=== PATIENT | female | born 1960 | race Caucasian/White ===

== ENCOUNTER 2019-04-18 00:36 | Observation (INO) | payer MEDICARE, OTHER ==
[2019-04-18] MEDS ORDERED: ASPIRIN 81 MG PO STA (01:24)
[2019-04-18] MEDS ORDERED: NITROGLYCERIN SL TABS 0.4 MG TAB SUBLINGUAL STA (01:24)
--- NOTE | 2019-04-18 01:24 | ED ---
Chest Pain HPI - General Chief Complaint: Chest Pain Stated Complaint: Chest Pain Time Seen by Provider: 04/18/19 01:06 Source: patient Mode of arrival: wheelchair Limitations: no limitations - History of Present Illness MD Complaint: chest pain -: hour(s) Onset: during rest Pain Location: substernal Pain Radiation: none Severity: severe Quality: tightness Consistency: constant Improves With: nothing Worsens With: inspiration Treatments Prior to Arrival: none - Related Data Home Medications Medication Instructions Recorded Confirmed Ibuprofen [Motrin] 800 mg PO DAILY 10/16/17 10/16/17 Allergies Allergy/AdvReac Type Severity Reaction Status Date / Time codeine Allergy Anaphylaxis Verified 04/18/19 00:57 Review of Systems ROS Statement: Those systems with pertinent positive or pertinent negative responses have been documented in the HPI. ROS Other: All systems not noted in ROS Statement are negative. Constitutional: Denies: fever Respiratory: Denies: cough, dyspnea, wheezes, hemoptysis Cardiovascular: Reports: chest pain. Denies: palpitations, orthopnea, edema, syncope Gastrointestinal: Denies: abdominal pain, nausea, vomiting, melena, hematochezia Genitourinary: Denies: dysuria, hematuria Musculoskeletal: Denies: back pain Skin: Denies: rash Neurological: Denies: headache, weakness, numbness EKG Findings - EKG Results: EKG: interpreted by LEAH, sinus rhythm (Rate 98 bpm), normal axis, normal QRS - Blocks, Breeding, Hypertrophy, ST Abn: Repolarization changes or abnormalities: ST or T wave suggestive of ischemia Past Medical History Past Medical History: No Reported History, Osteoarthritis (OA) History of Any Multi-Drug Resistant Organisms: None Reported Past Surgical History: Cholecystectomy, Hysterectomy Past Anesthesia/Blood Transfusion Reactions: No Reported Reaction Past Psychological History: No Psychological Hx Reported Smoking Status: Current every day smoker Past Alcohol Use History: None Reported Past Drug Use History: None Reported - Past Family History Mother Family Medical History: No Reported History General Exam Limitations: no limitations General appearance: alert, in no apparent distress Head exam: Present: atraumatic, normocephalic Eye exam: Present: normal appearance. Absent: scleral icterus, conjunctival injection ENT exam: Present: normal oropharynx Respiratory exam: Present: normal lung sounds bilaterally. Absent: respiratory distress, wheezes, rales, rhonchi, stridor Cardiovascular Exam: Present: regular rate, normal rhythm, normal heart sounds. Absent: systolic murmur, diastolic murmur, rubs, gallop GI/Abdominal exam: Present: soft. Absent: distended, tenderness, guarding, rebound, mass Extremities exam: Present: normal inspection, normal capillary refill. Absent: pedal edema, calf tenderness Back exam: Present: normal inspection. Absent: CVA tenderness (R), CVA tenderness (L) Neurological exam: Present: alert Skin exam: Present: warm, dry, intact, normal color. Absent: rash Course Vital Signs 04/18/19 04/18/19 04/18/19 00:55 01:56 02:03 Temperature 97.9 F 98.7 F Pulse Rate 105 H 104 H Respiratory 18 18 18 Rate Blood Pressure 136/96 122/54 O2 Sat by Pulse 96 98 Oximetry 04/18/19 04/18/19 03:14 04:29 Temperature 98.6 F Pulse Rate 101 H 88 Respiratory 18 18 Rate Blood Pressure 143/82 153/96 O2 Sat by Pulse 97 98 Oximetry Disposition Clinical Impression: Chest pain, UTI (urinary tract infection) Disposition: ADMITTED IP TO THIS HOSP Condition: Good Is patient prescribed a controlled substance at d/c from ED?: No Referrals: Edwin Euceda MD [Primary Care Provider] - 1-2 days
[2019-04-18 01:45] LABS: Basophils # (A) 0.3 k/uL (0-0.2); Basophils % (A) 1 %; Eosinophils # (A) 0.3 k/uL (0-0.7); Eosinophils % (A) 1 %; HCT 43.1 % (34.0-46.0); HGB 14.6 gm/dL (11.4-16.0); Lymphocytes % (A) 10 %; MCH 30.3 pg (25.0-35.0); MCHC 33.8 g/dL (31.0-37.0); MCV 89.7 fL (80.0-100.0); Mean Platelet Volume 6.2; Monocytes # (A) 1.1 k/uL (0-1.0); Monocytes % (A) 5 %; Neutrophils # (A) 16.8 k/uL (1.3-7.7); Neutrophils % (A) 82 %; Platelet Count 312 k/uL (150-450); RDW 13.7 % (11.5-15.5); WBC 20.6 k/uL (3.8-10.6)
--- NOTE | 2019-04-18 01:52 | XR ---
EXAMINATION TYPE: XR chest 2V DATE OF EXAM: 04/18/2019 COMPARISON: 03/27/2016 HISTORY: Chest pain TECHNIQUE: Frontal and lateral views of the chest are obtained. FINDINGS: Heart and mediastinum are normal. Lungs are clear of consolidation. There is slight coarse jenniffer of interstitial markings. There is no heart failure. There is no sign of pleural effusion. There are chest leads. IMPRESSION: Slight increased lung markings and decreased inspiration compared to last exam. No pulmo nary consolidation or heart failure.
[2019-04-18 01:56] LABS: ALT 19 U/L (9-52); AST 23 U/L (14-36); African American GFR (CKD) >90 (>60 ml/min/1.73 sqM); Albumin 4.3 g/dL (3.5-5.0); Alkaline Phosphatase 102 U/L (38-126); Anion Gap 7 mmol/L; Blood Urea Nitrogen 15 mg/dL (7-17); Calcium 9.5 mg/dL (8.4-10.2); Carbon Dioxide 26 mmol/L (22-30); Chloride 106 mmol/L (98-107); Glucose 118 mg/dL (74-99); Magnesium 1.6 mg/dL (1.6-2.3); Non-African American GFR(CKD) >90 (>60 ml/min/1.73 sqM); Potassium 4.3 mmol/L (3.5-5.1); Sodium 139 mmol/L (137-145); Total Bilirubin 0.4 mg/dL (0.2-1.3); Total Protein 7.6 g/dL (6.3-8.2)
[2019-04-18 02:09] LABS: INR 0.9 (<1.2); Prothrombin Time 9.4 sec (9.0-12.0)
[2019-04-18 02:13] LABS: Mucus,Urine Moderate /hpf; RBC,Urine 155 /hpf (0-5); Squamous Epithelial Cell,Urine 37 /hpf (0-4); WBC,Urine >182 /hpf (0-5)
[2019-04-18 02:15] LABS: Partial Thromboplastin Time 19.2 sec (22.0-30.0)
[2019-04-18 02:16] LABS: D-Dimer 0.59 mg/L FEU (<0.60)
[2019-04-18 02:21] LABS: Appearance,Urine Turbid (Clear); Bacteria,Urine Occasional /hpf; Bilirubin,Urine Negative (Negative); Blood,Urine Small (Negative); Color,Urine Yellow; Glucose,Urine (UA) Negative (Negative); Ketones,Urine Negative (Negative); Leukocyte Esterase,Urine Large (Negative); Nitrite,Urine Negative (Negative); PH, Urine 5.5 (5.0-8.0); Protein,Urine 1+ (Negative); Urobilinogen,Urine <2.0 mg/dL (<2.0)
[2019-04-18] MEDS ORDERED: IBUPROFEN 600 MG TAB PO STA (03:21)
[2019-04-18] MEDS ORDERED: ACETAMINOPHEN TAB 325 MG TAB PO STA (03:21)
[2019-04-18] MEDS ORDERED: NITROGLYCERIN SL TABS 0.4 MG TAB SUBLINGUAL PRN (06:21)
--- NOTE | 2019-04-18 08:03 | P.HPIM ---
History of Present Illness H&P Date: 04/18/19 Chief Complaint: Chest pain This is a history and physical 59-year-old white female who states yesterday he had significant sternal chest pressure. She states radiated to her neck. No significant nausea or vomiting and no significant diaphoresis stated. She states it was sudden onset but was relieved by nitroglycerin. We had a long discussion regarding tobacco cessation as she is about half pack a day smoker. No family history of temperature cardiac disease stated. The patient is now resting somewhat uncomfortably. Review of Systems Constitutional: Denies chills, Denies fever Eyes: denies blurred vision, denies pain Ears, nose, mouth and throat: Denies headache, Denies sore throat Cardiovascular: Reports chest pain, Denies shortness of breath Respiratory: Denies cough Genitourinary: Denies dysuria, Denies hematuria Musculoskeletal: Denies myalgias Integumentary: Denies pruritus, Denies rash Neurological: Denies numbness, Denies weakness Past Medical History Past Medical History: No Reported History, Osteoarthritis (OA) History of Any Multi-Drug Resistant Organisms: None Reported Past Surgical History: Cholecystectomy, Hysterectomy Past Anesthesia/Blood Transfusion Reactions: No Reported Reaction Past Psychological History: No Psychological Hx Reported Smoking Status: Current every day smoker Past Alcohol Use History: None Reported Past Drug Use History: None Reported - Past Family History Mother Family Medical History: No Reported History Medications and Allergies Home Medications Medication Instructions Recorded Confirmed Type Ibuprofen [Motrin] 800 mg PO DAILY PRN 10/16/17 04/18/19 History Cholecalciferol [Vitamin D3 (25 1,000 unit PO DAILY 04/18/19 04/18/19 History Mcg = 1000 Iu)] L.acidoph,Paracasei, B.lactis 1 cap PO DAILY 04/18/19 04/18/19 History [Probiotic] Allergies Allergy/AdvReac Type Severity Reaction Status Date / Time codeine AdvReac SOB Verified 04/18/19 07:21 tramadol AdvReac Nausea & Verified 04/18/19 07:21 Vomiting Physical Exam Vitals: Vital Signs Temp Pulse Resp BP Pulse Ox 04/18/19 06:34 98.6 F 88 18 120/72 94 L 04/18/19 04:29 88 18 153/96 98 04/18/19 03:14 98.6 F 101 H 18 143/82 97 10/17/19 02:03 98.7 F 104 H 18 122/54 98 04/18/19 01:56 18 04/18/19 00:55 97.9 F 105 H 18 136/96 96 Intake and Output 04/17/19 04/18/19 04/18/19 22:59 06:59 14:59 Other: Weight 81.647 kg - Constitutional General appearance: no acute distress, obese - EENT Eyes: EOMI - Neck Neck: no lymphadenopathy - Respiratory Respiratory: bilateral: CTA - Cardiovascular Rhythm: regular Heart sounds: normal: S1, S2 Abnormal Heart Sounds: no S3 Gallop - Gastrointestinal General gastrointestinal: soft, no tenderness - Psychiatric Psychiatric: A&O x's 3, no appropriate affect Results CBC & Chem 7: 04/18/19 01:36 04/18/19 01:36 Labs: Abnormal Lab Results - Last 24 Hours (Table) 04/18/19 04/18/19 04/18/19 Range/Units 01:36 01:36 01:36 WBC 20.6 H (3.8-10.6) k/uL Neutrophils # 16.8 H (1.3-7.7) k/uL Monocytes # 1.1 H (0-1.0) k/uL Basophils # 0.3 H (0-0.2) k/uL APTT 19.2 L (22.0-30.0) sec Glucose 118 H (74-99) mg/dL Urine Appearance (Clear) Urine Protein (Negative) Urine Blood (Negative) Ur Leukocyte Esterase (Negative) Urine RBC (0-5) /hpf Urine WBC (0-5) /hpf Ur Squamous Epith Cells (0-4) /hpf Urine Bacteria (None) /hpf Urine Mucus (None) /hpf 04/18/19 Range/Units 01:57 WBC (3.8-10.6) k/uL Neutrophils # (1.3-7.7) k/uL Monocytes # (0-1.0) k/uL Basophils # (0-0.2) k/uL APTT (22.0-30.0) sec Glucose (74-99) mg/dL Urine Appearance Turbid H (Clear) Urine Protein 1+ H (Negative) Urine Blood Small H (Negative) Ur Leukocyte Esterase Large H (Negative) Urine RBC 155 H (0-5) /hpf Urine WBC >182 H (0-5) /hpf Ur Squamous Epith Cells 37 H (0-4) /hpf Urine Bacteria Occasional H (None) /hpf Urine Mucus Moderate H (None) /hpf Assessment and Plan (1) Chest pain Current Visit: Yes Status: Acute Code(s): R07.9 - CHEST PAIN, UNSPECIFIED SNOMED Code(s): 71898634 (2) UTI (urinary tract infection) Current Visit: Yes Status: Acute Code(s): N39.0 - URINARY TRACT INFECTION, SITE NOT SPECIFIED SNOMED Code(s): 01953807 Plan: The patient has anginal type pain. Cardiology has now been consulted. There has been no significant enzymatic elevation for cardiac enzymes. Reconcile medications as necessary. We'll continue follow from a medical perspective-anticipate element of stress testing prior to discharge. Time with Patient: Greater than 30
[2019-04-18 09:20] VITALS: RESP 18
--- NOTE | 2019-04-18 11:05 | P.CRDCN ---
History of Present Illness Consult date: 04/18/19 History of present illness: This is a 59-year-old female with no significant past medical history except that she is being treated for UTI for the last few weeks. Denied any recent fever, chills or cough. Apparently she [place] in the [place] yesterday and started having discomfort across the upper chest. It was kind of radiating to the neck and towards jaw. The pain increases on deep breathing. It also hurts more when she lays flat and gets better when she sits up. Her EKG showed sinus rhythm with diffuse ST-T changes inferolateral leads. Cardiac enzymes are pending. Urinalysis is suggestive of UTI and her white count is about 20,000. She is being treated for UTI. Her pains. Appear more pleuritic and possibility of pleuritis or pericarditis to be considered. Doesn't appear typical anginal pains. We'll follow cardiac enzymes and also get an echocardiogram. Further recommendation depending upon the clinical course. She has no history of hyper tension, diabetes. She is not taking any cardiac medications. No history of previous myocardial infarction. No history of ischemic or disease in the family Review of Systems As per the chart Past Medical History Past Medical History: GERD/Reflux, Osteoarthritis (OA), Pneumonia, Renal Disease Additional Past Medical History / Comment(s): Arthritis R hip and R knee, kidney stones, uti off/on since January 2019. History of Any Multi-Drug Resistant Organisms: None Reported Past Surgical History: Cholecystectomy, Hysterectomy, Tubal Ligation Past Anesthesia/Blood Transfusion Reactions: No Reported Reaction Smoking Status: Current every day smoker - Past Family History Mother Family Medical History: No Reported History, Dementia, Hyperlipidemia Additional Family Medical History / Comment(s): Mother of dementia at the age of 97yrs. Father Family Medical History: Coronary Artery Disease (CAD), Eye Disorder Additional Family Medical History / Comment(s): Father had glaucoma. He lived to be 97yrs old. Medications and Allergies Home Medications Medication Instructions Recorded Confirmed Type Ibuprofen [Motrin] 800 mg PO DAILY PRN 10/16/17 04/18/19 History Cholecalciferol [Vitamin D3 (25 1,000 unit PO DAILY 04/18/19 04/18/19 History Mcg = 1000 Iu)] L.acidoph,Paracasei, B.lactis 1 cap PO DAILY 04/18/19 04/18/19 History [Probiotic] Allergies Allergy/AdvReac Type Severity Reaction Status Date / Time codeine AdvReac SOB Verified 04/18/19 07:21 tramadol AdvReac Nausea & Verified 04/18/19 07:21 Vomiting Physical Exam Vitals: Vital Signs Temp Pulse Pulse Resp BP BP Pulse Ox 04/18/19 10:48 96 04/18/19 09:10 97.9 F 93 18 144/82 96 04/18/19 09:00 77 16 125/80 100 04/18/19 06:34 98.6 F 88 18 120/72 94 L 04/18/19 04:29 88 18 153/96 98 04/18/19 03:14 98.6 F 101 H 18 143/82 97 04/18/19 02:03 98.7 F 104 H 18 122/54 98 04/18/19 01:56 18 04/18/19 00:55 97.9 F 105 H 18 136/96 96 Intake and Output 04/17/19 04/18/19 04/18/19 22:59 06:59 14:59 Other: Voiding Method Toilet Weight 81.647 kg GENERAL EXAM: Patient is alert and oriented and doesn't appear to be in any acute distress HEENT: Normocephalic. Normal reaction of pupils, equal size, normal range of extraocular motion. No erythema or exudates in the throat. NECK: No masses, no nuchal rigidity. CHEST: No chest wall deformity. LUNGS: Equal air entry with no crackles or wheeze. HEART: S1 and S2 normal with no audible mumurs or gallops. Regular rhythm, femorals equal on both sides.. ABDOMEN: No hepatosplenomegaly, normal bowel sounds, no guarding or rigidity. SKIN: No rashes CENTRAL NERVOUS SYSTEM: No focal deficits. EXTREMITIES: No cyanosis, clubbing or edema. Results 04/18/19 01:36 04/18/19 01:36 Cardiac Enzymes 04/18/19 04/18/19 04/18/19 Range/Units 01:36 01:36 08:00 AST 23 (14-36) U/L Troponin I <0.012 <0.012 (0.000-0.034) ng/mL Coagulation 04/18/19 Range/Units 01:36 PT 9.4 (9.0-12.0) sec APTT 19.2 L (22.0-30.0) sec CBC 04/18/19 Range/Units 01:36 WBC 20.6 H (3.8-10.6) k/uL RBC 4.80 (3.80-5.40) m/uL Hgb 14.6 (11.4-16.0) gm/dL Hct 43.1 (34.0-46.0) % Plt Count 312 (150-450) k/uL Comprehensive Metabolic Panel 04/18/19 Range/Units 01:36 Sodium 139 (137-145) mmol/L Potassium 4.3 (3.5-5.1) mmol/L Chloride 106 (98-107) mmol/L Carbon Dioxide 26 (22-30) mmol/L BUN 15 (7-17) mg/dL Creatinine 0.56 (0.52-1.04) mg/dL Glucose 118 H (74-99) mg/dL Calcium 9.5 (8.4-10.2) mg/dL AST 23 (14-36) U/L ALT 19 (9-52) U/L Alkaline Phosphatase 102 (38-126) U/L Total Protein 7.6 (6.3-8.2) g/dL Albumin 4.3 (3.5-5.0) g/dL Current Medications Generic Name Dose Route Start Last Admin Trade Name Freq PRN Reason Stop Dose Admin Aspirin 325 mg 04/19/19 09:00 Aspirin PO DAILY [facility] Sodium Chloride 1,000 mls @ 20 mls/hr 04/18/19 06:30 Saline 0.9% IV .Q24H [facility] Ceftriaxone Sodium 1 gm/ 50 mls @ 100 mls/hr 04/18/19 21:00 Sodium Chloride IVPB DAILY@2100 [facility] Nitroglycerin 0.4 mg 04/18/19 06:21 Nitrostat SUBLINGUAL Q5M PRN Chest Pain Intake and Output 04/17/19 04/18/19 04/18/19 22:59 06:59 14:59 Other: Voiding Method Toilet Weight 81.647 kg 04/18/19 01:36 04/18/19 01:36 EKG Interpretations (text) Sinus rhythm with a diffuse ST-T changes inferolateral leads Assessment and Plan (1) Chest pain Current Visit: Yes Status: Acute Code(s): R07.9 - CHEST PAIN, UNSPECIFIED SNOMED Code(s): 21564947 (2) UTI (urinary tract infection) Current Visit: Yes Status: Acute Code(s): N39.0 - URINARY TRACT INFECTION, SITE NOT SPECIFIED SNOMED Code(s): 47630878 Plan: Her chest pains are atypical for angina and suggestive of a pruritic Pain. Rule out the possibility of pericarditis. She is also has UTI. We'll get an echocardiogram and also cardiac enzymes studies. Further recommendation will depend upon the findings on the above test and clinical course. Because of abnormal EKG, patient may need further evaluation to rule out ischemic heart disease. When patient is stable, stress test could be considered
[2019-04-18] MEDS: SODIUM CHLORIDE 0.9% 1,000 ML IV SCH (12:44)
[2019-04-18] MEDS ORDERED: ACETAMINOPHEN TAB 325 MG TAB PO PRN (15:20)
[2019-04-19] MEDS: SODIUM CHLORIDE 0.9% 1,000 ML IV SCH (05:16)
[2019-04-19 05:25] LABS: Cholesterol 238 mg/dL (<200); HDL Cholesterol 41 mg/dL (40-60); LDL Cholesterol,Calculated 167 mg/dL (0-99); Triglycerides 149 mg/dL (<150)
--- NOTE | 2019-04-19 08:01 | P.PN ---
Subjective Progress Note Date: 04/19/19 Principal diagnosis: Atypical chest pain This 59-year-old white female essentially admitted for atypical chest pain and recurrent UTI. I had a long discussion regarding outpatient workup with urology. She has an underlying history of nonobstructing kidney stones. She does not complain of any type of urinary incontinence. Question need for post void residual. Otherwise no significant enzymatic elevation from a cardiac perspective. I do appreciate cardiology input Objective - Vital Signs Vital signs: Vital Signs Temp 98.1 F 04/19/19 04:00 Pulse 84 04/19/19 04:00 Resp 18 04/19/19 04:00 BP 123/79 04/19/19 04:00 Pulse Ox 95 04/19/19 04:00 Intake & Output 04/18/19 04/19/19 04/19/19 18:59 06:59 18:59 Other: Voiding Method Toilet Toilet # Voids 1 1 - Constitutional General appearance: Present: cooperative, no acute distress - EENT Eyes: Present: abnormal pupil - Neck Neck: Present: lymphadenopathy - Respiratory Respiratory: bilateral: CTA - Cardiovascular Rhythm: regular Heart sounds: normal: S1, S2 Abnormal Heart Sounds: Absent: S3 Gallop - Gastrointestinal General gastrointestinal: Present: soft. Absent: tenderness - Psychiatric Psychiatric: Present: A&O x's 3, appropriate affect - Labs CBC & Chem 7: 04/18/19 01:36 04/18/19 01:36 Labs: Abnormal Lab Results - Last 24 Hours (Table) 04/18/19 Range/Units 08:00 Cholesterol 238 H (<200) mg/dL LDL Cholesterol, Calc 167 H (0-99) mg/dL Microbiology - Last 24 Hours (Table) 04/18/19 03:00 Blood Culture - Preliminary Blood No Growth after 24 hours Assessment and Plan (1) Chest pain Current Visit: Yes Status: Acute Code(s): R07.9 - CHEST PAIN, UNSPECIFIED SNOMED Code(s): 00109443 (2) UTI (urinary tract infection) Current Visit: Yes Status: Acute Code(s): N39.0 - URINARY TRACT INFECTION, SITE NOT SPECIFIED SNOMED Code(s): 47851545 Plan: The patient has atypical type pain. Appreciate cardiology input. Possible ischemic stress testing today. Anticipate discharge later today Time with Patient: Less than 30
[2019-04-19] MEDS ORDERED: CIPROFLOXACIN HCL 500 MG TAB PO SCH (09:00)
[2019-04-19] MEDS ORDERED: ASPIRIN 325 MG TAB PO SCH (09:00)
[2019-04-19] MEDS ORDERED: ASPIRIN 81 MG PO SCH (09:00)
--- NOTE | 2019-04-19 10:31 | P.PN ---
Subjective This is a pleasant 59-year-old female past medical history significant for gastroesophageal reflux disease, arthritis and dyslipidemia intolerant to Lipitor. She is currently being treated for urinary tract infection. We're following secondary to chest discomfort. She is seen and examined up ambulating around the room in no acute distress. She denies any further symptoms of chest discomfort. Blood pressure 128/86 heart rate 82 afebrile maintaining oxygen saturation on room air. Laboratory data reviewed, cardiac enzymes negative 3, LDL 167. The patient states she has attempted to take Lipitor in the past however had significant muscle achiness. GENERAL: Well-appearing, well-nourished and in no acute distress. NECK: Supple without JVD or thyromegaly. LUNGS: Breath sounds clear to auscultation bilaterally. Respiration equal and unlabored. No wheezes, rales or rhonchi. HEART: Regular rate and rhythm without murmurs, rubs or gallops. S1 and S2 heard. EXTREMITIES: Normal range of motion, no edema. No clubbing or cyanosis. Peripheral pulses intact. ASSESSMENT Chest pain, pleuritic and atypical for angina. An acute coronary event has been ruled out. Urinary tract infection Leukocytosis Dyslipidemia PLAN Echocardiogram has been obtained and will be reviewed prior to discharge. The patient agreeable to trial rosuvastatin. Prescription will be sent her pharmacy. Outpatient stress testing once urinary tract infection has resolved. Appointment will be made in the office with Dr. Davis in 2 weeks. Nurse Practitioner note has been reviewed, I agree with a documented findings and plan of care. Patient was seen and examined. Objective - Vital Signs Vital signs: Vital Signs Temp 98.1 F 04/19/19 08:00 Pulse 82 04/19/19 08:00 Resp 18 04/19/19 08:00 BP 128/86 04/19/19 08:00 Pulse Ox 95 04/19/19 08:00 Intake & Output 04/18/19 04/19/19 04/19/19 18:59 06:59 18:59 Other: Voiding Method Toilet Toilet Toilet # Voids 1 1 1 - Labs CBC & Chem 7: 04/18/19 01:36 04/18/19 01:36 Labs: Abnormal Lab Results - Last 24 Hours (Table) 04/18/19 Range/Units 08:00 Cholesterol 238 H (<200) mg/dL LDL Cholesterol, Calc 167 H (0-99) mg/dL Microbiology - Last 24 Hours (Table) 04/18/19 03:00 Blood Culture - Preliminary Blood No Growth after 24 hours
[2019-04-19 12:00] VITALS: BP 130/85; PULSE 81; TEMP 97.6
--- NOTE | 2019-04-19 18:47 | ECHOF ---
Referral Reason:cp MEASUREMENTS -------- HEIGHT: 160.0 cm WEIGHT: 81.6 kg BP: RVIDd: 3.2 cm (< 3.3) IVSd: 1.1 cm (0.6 - 1.1) LVIDd: 4.2 cm (3.9 - 5.3) LVPWd: 1.2 cm (0.6 - 1.1) IVSs: 1.4 cm LVIDs: 3.1 cm LVPWs: 1.4 cm LA Diam: 3.1 cm (2.7 - 3.8) LAESV Index (A-L): 21.32 ml/m Ao Diam: 3.0 cm (2.0 - 3.7) AV Cusp: 1.9 cm (1.5 - 2.6) LA Diam: 3.2 cm (2.7 - 3.8) MV EXCURSION: 14.230 mm (> 18.000) MV EF SLOPE: 91 mm/s (70 - 150) EPSS: 0.7 cm MV E Chente: 0.62 m/s MV DecT: 214 ms MV A Chente: 0.71 m/s MV E/A Ratio: 0.87 RAP: 5.00 mmHg RVSP: 26.79 mmHg FINDINGS -------- Sinus rhythm. This was a technically good study. The left ventricular size is normal. There is borderline concentric left ventricular hypertrophy. Overall left ventricular systolic function is normal with, an EF between 55 - 60 %. The right ventricle is normal in size. The left atrium is mildly dilated. LA is midly dilated 29-33ml/m2. The right atrial size is normal. The aortic valve is trileaflet, and appears structurally normal. No aortic stenosis or regurgitation. Mild mitral annular calcification present. Mild mitral regurgitation is present. Mild tricuspid regurgitation present. Right ventricular systolic pressure is normal at < 35 mmHg. There is no evidence of pulmonary hypertension. There is no pulmonic regurgitation present. The aortic root size is normal. There is no pericardial effusion. CONCLUSIONS -------- 1. Sinus rhythm. 2. This was a technically good study. 3. The left ventricular size is normal. 4. There is borderline concentric left ventricular hypertrophy. 5. Overall left ventricular systolic function is normal with, an EF between 55 - 60 %. 6. The right ventricle is normal in size. 7. The left atrium is mildly dilated. 8. LA is midly dilated 29-33ml/m2. 9. The right atrial size is normal. 10. The aortic valve is trileaflet, and appears structurally normal. No aortic stenosis or regurgitat ion. 11. Mild mitral annular calcification present. 12. Mild mitral regurgitation is present. 13. Mild tricuspid regurgitation present. 14. Right ventricular systolic pressure is normal at < 35 mmHg. 15. There is no evidence of pulmonary hypertension. 16. There is no pulmonic regurgitation present. 17. The aortic root size is normal. 18. There is no pericardial effusion. ADMISSIONS MANAGER: Rosie Yeboah RDCS
== END 2019-04-19 13:00 ==
LOC: EC 00:36 → 1SOBS 06:23
PROVIDERS: ADMIT Family Medicine; ATTEND Family Medicine
DX: R07.89 Other chest pain (principal); N39.0 Urinary tract infection, site not specified; F17.210 Nicotine dependence, cigarettes, uncomplicated; K21.9 Gastro-esophageal reflux disease without esophagitis; M16.11 Unilateral primary osteoarthritis, right hip; M17.11 Unilateral primary osteoarthritis, right knee; I08.1 Rheumatic disorders of both mitral and tricuspid valves; R94.31 Abnormal electrocardiogram [ECG] [EKG]; E78.5 Hyperlipidemia, unspecified; E66.9 Obesity, unspecified; Z68.31 Body mass index [BMI] 31.0-31.9, adult; Z79.1 Long term (current) use of non-steroidal anti-inflammatories (NSAID); Z88.5 Allergy status to narcotic agent; Z90.49 Acquired absence of other specified parts of digestive tract; Z90.710 Acquired absence of both cervix and uterus; Z87.442 Personal history of urinary calculi; Z87.01 Personal history of pneumonia (recurrent); Z81.8 Family history of other mental and behavioral disorders; Z83.511 Family history of glaucoma; Z83.49 Family history of other endocrine, nutritional and metabolic diseases
CPT/HCPCS: 96365; 99285; 36415; 94760; 93005; 93306; 85379; 80061; 80053; 83735; 84484; 85025; 85610; 85730; 81001; 87040; 71046; G0378 ×2; J0696

== ENCOUNTER 2023-06-29 11:59 | Observation (INO) | payer MEDICARE, OTHER ==
--- NOTE | 2023-06-29 12:34 | ED ---
General Adult HPI - General Chief complaint: Abdominal Pain Stated complaint: poss Kidney Stones Time Seen by Provider: 06/29/23 12:03 Source: patient, EMS, RN notes reviewed, old records reviewed Mode of arrival: EMS Limitations: no limitations - History of Present Illness Initial comments: 63 yo female presenting as transfer from [facility] with obstructing left-sided kidney stone and elevated white blood cell count. Patient states that for the past 4 days she's had left flank pain with associated nausea vomiting. No fever. She has had dysuria associated with her symptoms. She has remote history of kidney stone but has not required intervention. - Related Data Home Medications Medication Instructions Recorded Confirmed Ibuprofen [Motrin] 800 mg PO DAILY PRN 10/16/17 04/18/19 Cholecalciferol [Vitamin D3 (25 1,000 unit PO DAILY 04/18/19 04/18/19 Mcg = 1000 Iu)] L.acidoph,Paracasei, B.lactis 1 cap PO DAILY 04/18/19 04/18/19 [Probiotic] Previous Rx's Medication Instructions Recorded Rosuvastatin [Crestor] 20 mg PO HS #90 tablet 04/19/19 Allergies Allergy/AdvReac Type Severity Reaction Status Date / Time codeine AdvReac SOB Verified 04/18/19 07:21 tramadol AdvReac Nausea & Verified 04/18/19 07:21 Vomiting Review of Systems ROS Statement: Those systems with pertinent positive or pertinent negative responses have been documented in the HPI. ROS Other: All systems not noted in ROS Statement are negative. Past Medical History Past Medical History: GERD/Reflux, Osteoarthritis (OA), Pneumonia, Renal Disease Additional Past Medical History / Comment(s): Arthritis R hip and R knee, kidney stones, uti off/on since January 2019. History of Any Multi-Drug Resistant Organisms: None Reported Past Surgical History: Cholecystectomy, Hysterectomy, Tubal Ligation Past Anesthesia/Blood Transfusion Reactions: No Reported Reaction Past Psychological History: No Psychological Hx Reported Smoking Status: Current every day smoker Past Alcohol Use History: None Reported Past Drug Use History: None Reported - Past Family History Mother Family Medical History: No Reported History, Dementia, Hyperlipidemia Additional Family Medical History / Comment(s): Mother of dementia at the age of 97yrs. Father Family Medical History: Coronary Artery Disease (CAD), Eye Disorder Additional Family Medical History / Comment(s): Father had glaucoma. He lived to be 97yrs old. General Exam Limitations: no limitations General appearance: alert, in no apparent distress Head exam: Present: atraumatic, normocephalic Eye exam: Present: normal appearance, PERRL Neck exam: Present: normal inspection. Absent: tenderness, meningismus Respiratory exam: Present: normal lung sounds bilaterally. Absent: respiratory distress, wheezes Cardiovascular Exam: Present: regular rate, normal rhythm GI/Abdominal exam: Present: soft. Absent: distended, tenderness Extremities exam: Present: normal inspection, normal capillary refill Back exam: Present: CVA tenderness (L) Neurological exam: Present: alert, oriented X3, CN II-XII intact. Absent: motor sensory deficit Psychiatric exam: Present: normal affect, normal mood Skin exam: Present: warm, dry, intact. Absent: cyanosis, diaphoretic Course Vital Signs 06/29/23 12:07 Pulse Rate 85 Respiratory 16 Rate Blood Pressure 130/70 O2 Sat by Pulse 96 Oximetry Medical Decision Making - Medical Decision Making Was pt. sent in by a medical professional or institution (, PA, CERTIFIED DIETARY MANAGER, urgent care, hospital, or care home...) When possible be specific @ Sent from [facility] with request for urology consultation Did you speak to anyone other than the patient for history (EMS, parent, family, police, friend...)? What history was obtained from this source @ -No Did you review nursing and triage notes (agree or disagree)? Why? @ -I reviewed and agree with nursing and triage notes Were old charts reviewed (outside hosp., previous admission, EMS record, old EKG, old radiological studies, urgent care reports/EKG's, care home records)? Report findings @ -No old charts were reviewed Differential Diagnosis (chest pain, altered mental status, abdominal pain women, abdominal pain men, vaginal bleeding, weakness, fever, dyspnea, syncope, headache, dizziness, GI bleed, back pain, seizure, CVA, palpatations, mental health, musculoskeletal)? @ Differential Abdominal Pain Women: Appendicitis, Cholecystitis, diverticulosis, ischemic bowel, pancreatitis, hepatitis, UTI, gastroenteritis, AAA, incarcerated hernia, bowel obstruction, constipation, inflammatory bowel, hepatitis, peptic ulcer disease, splenic infarction, perforated viscus, vulvitis, ovarian torsion, PID, kidney stone, placenta abruption, this is not meant to be an all-inclusive list EKG interpreted by me (3pts min.). @ -As above X-rays interpreted by me (1pt min.). @ -None done CT interpreted by me (1pt min.). @ CT of the abdomen and pelvis currently being loaded, images unavailable for review. Etiology interpretation: 6 mm obstructing UVJ stone U/S interpreted by me (1pt. min.). @ -None done What testing was considered but not performed or refused? (CT, X-rays, U/S, labs)? Why? @ -None What meds were considered but not given or refused? Why? @ -None Did you discuss the management of the patient with other professionals (professionals i.e. , PA, CERTIFIED DIETARY MANAGER, lab, RT, psych nurse, social psychologist, fuel conversion technician, teacher, giving officer, pillowcase sewer)? Give summary @ -No Was smoking cessation discussed for >3mins.? @ -No Was critical care preformed (if so, how long)? @ -No Were there social determinants of health that impacted care today? How? (Homelessness, low income, unemployed, alcoholism, drug addiction, transportation, low edu. Level, literacy, decrease access to med. care, half-way, rehab)? @ -No Was there de-escalation of care discussed even if they declined (Discuss DNR or withdrawal of care, Hospice)? DNR status @ -No What co-morbidities impacted this encounter? (DM, HTN, Smoking, COPD, CAD, Cancer, CVA, ARF, Chemo, Hep., AIDS, mental health diagnosis, sleep apnea, morbid obesity)? @ -None Was patient admitted / discharged? Hospital course, mention meds given and route, prescriptions, significant lab abnormalities, going to OR and other pertinent info. @ 63-year-old female transferred with obstructing stone and signs of concurrent urinary tract infection concern for septic stone. Urinalysis does have bacteriuria with leukocyte Estrace and elevated white blood cell count. She has a serum white blood cell count of 17,000. Patient nontoxic. Upon arrival was stable vitals. She will be continued on IV antibiotics, IV fluids and symptomatic medications for pain and nausea. She'll be admitted to Dr. Euceda her primary care provider and Dr. Suarez placed on consult. Both physicians are aware patient. Undiagnosed new problem with uncertain prognosis? @ -No Drug Therapy requiring intensive monitoring for toxicity (Heparin, Nitro, Insulin, Cardizem)? @ -No Were any procedures done? @ -No Diagnosis/symptom? @ -Obstructing renal calculus with UTI Acute, or Chronic, or Acute on Chronic? @ -acute Uncomplicated (without systemic symptoms) or Complicated (systemic symptoms)? @ Complicated Side effects of treatment? @ -No Exacerbation, Progression, or Severe Exacerbation? @ -No Poses a threat to life or bodily function? How? (Chest pain, USA, PR, pneumonia, PE, COPD, DKA, ARF, appy, cholecystitis, CVA, Diverticulitis, Homicidal, Suicidal, threat to staff... and all critical care pts) @ -[yes, sepsis Disposition Clinical Impression: UTI (urinary tract infection), Calculus of kidney Disposition: ADMITTED IP TO THIS HOSP Condition: Stable Is patient prescribed a controlled substance at d/c from ED?: No Referrals: Edwin Euceda MD [Primary Care Provider] - 1-2 days Time of Disposition: 12:45
[2023-06-29] MEDS ORDERED: HYDROmorphone 1 MG/ML 1 ML SYRINGE IVP PRN (12:37)
[2023-06-29] MEDS ORDERED: ACETAMINOPHEN TAB 325 MG TAB PO PRN (12:37)
[2023-06-29] MEDS ORDERED: NALOXONE 0.4 MG/ML 1 ML VIAL IV PRN (12:37)
[2023-06-29] MEDS ORDERED: ONDANSETRON 4 MG/2 ML VIAL IVP PRN (12:37)
[2023-06-29] MEDS ORDERED: HYDROmorphone 0.5 MG/0.5 ML SYRINGE IVP PRN (12:37)
[2023-06-29] MEDS: SODIUM CHLORIDE 0.9% 1,000 ML IV SCH ×2 (13:19→20:48)
[2023-06-29 13:50] LABS: Basophils # (A) 0.1 k/uL (0-0.2); Basophils % (A) 0 %; Eosinophils # (A) 0.2 k/uL (0-0.7); Eosinophils % (A) 1 %; HCT 41.1 % (34.0-46.0); HGB 13.5 gm/dL (11.4-16.0); Lymphocytes # (A) 2.8 k/uL (1.0-4.8); Lymphocytes % (A) 19 %; MCH 29.1 pg (25.0-35.0); MCHC 32.8 g/dL (31.0-37.0); MCV 88.5 fL (80.0-100.0); Mean Platelet Volume 8.1; Monocytes % (A) 7 %; Neutrophils # (A) 10.3 k/uL (1.3-7.7); Neutrophils % (A) 71 %; Platelet Count 316 k/uL (150-450); RBC 4.65 m/uL (3.80-5.40); RDW 14.5 % (11.5-15.5); WBC 14.6 k/uL (3.8-10.6)
[2023-06-29 13:57] LABS: ALT 14 U/L (4-34); AST 24 U/L (14-36); African American GFR (CKD) >90 (>60 ml/min/1.73 sqM); Albumin 3.5 g/dL (3.5-5.0); Alkaline Phosphatase 101 U/L (38-126); Anion Gap 9 mmol/L; Blood Urea Nitrogen 15 mg/dL (7-17); Calcium 8.5 mg/dL (8.4-10.2); Carbon Dioxide 23 mmol/L (22-30); Chloride 110 mmol/L (98-107); Glucose 88 mg/dL (74-99); Non-African American GFR(CKD) >90 (>60 ml/min/1.73 sqM); Potassium 4.3 mmol/L (3.5-5.1); Sodium 142 mmol/L (137-145); Total Bilirubin 0.5 mg/dL (0.2-1.3); Total Protein 6.4 g/dL (6.3-8.2)
[2023-06-29 14:13] LABS: Appearance,Urine Cloudy (Clear); Bacteria,Urine Rare /hpf; Bilirubin,Urine Negative (Negative); Blood,Urine Small (Negative); Calcium Oxalate Crystals,Urine Occasional /hpf; Color,Urine Yellow; Glucose,Urine (UA) Negative (Negative); Ketones,Urine Negative (Negative); Leukocyte Esterase,Urine Small (Negative); Mucus,Urine Many /hpf; Nitrite,Urine Negative (Negative); PH, Urine 6.5 (5.0-8.0); Protein,Urine Trace (Negative); RBC,Urine 33 /hpf (0-5); Specific Gravity,Urine 1.019 (1.001-1.035); Squamous Epithelial Cell,Urine 10 /hpf (0-4); Urobilinogen,Urine <2.0 mg/dL (<2.0); WBC,Urine 14 /hpf (0-5)
--- NOTE | 2023-06-29 15:48 | P.GSCN ---
History of Present Illness Consult date: 06/29/23 History of present illness: 63 yo female with a vague history of stones years ago presented to [facility] witha 1 week persistent llq pain A stone was suspected and a ct scan was done identifying a 6 mm lt uvj stone with obstruction. There was question of uti. There is no urologist at [facility] therefore the patient was transferred to [facility]. Her urine is inflammed , her wbc are 14k Here vitals are stable She is admitted for antibiotics, ivf and pain medication We were asked to see her. She denies fever. Her pain is moderate at present. SHe doesnot look nor act septic. She states that she had a stone many years ago Review of Systems All systems: negative - Constitutional Denies fever, Denies weight loss - EENT Eyes: denies blurred vision Ears, nose, mouth and throat: Denies dysphagia - Cardiovascular Denies chest pain, Denies shortness of breath - Respiratory Denies cough, Denies 7 - Gastrointestinal Reports as per HPI - Genitourinary Genitourinary: Denies dysuria, Denies hematuria - Integumentary Denies rash, Denies unusual bruising - Neurological Denies headaches, Denies syncope - Hematologic/Lymphatic Denies easy bleeding, Denies easy bruising Past Medical History Past Medical History: GERD/Reflux, Osteoarthritis (OA), Pneumonia, Renal Disease Additional Past Medical History / Comment(s): Arthritis R hip and R knee, kidney stones, uti off/on since January 2019. History of Any Multi-Drug Resistant Organisms: None Reported Past Surgical History: Cholecystectomy, Hysterectomy, Tubal Ligation Past Anesthesia/Blood Transfusion Reactions: No Reported Reaction Past Psychological History: No Psychological Hx Reported Smoking Status: Current every day smoker Past Alcohol Use History: None Reported Past Drug Use History: None Reported - Past Family History Mother Family Medical History: No Reported History, Dementia, Hyperlipidemia Additional Family Medical History / Comment(s): Mother of dementia at the age of 97yrs. Father Family Medical History: Coronary Artery Disease (CAD), Eye Disorder Additional Family Medical History / Comment(s): Father had glaucoma. He lived to be 97yrs old. Medications and Allergies Home Medications Medication Instructions Recorded Confirmed Type No Known Home Medications 06/29/23 06/29/23 History Allergies Allergy/AdvReac Type Severity Reaction Status Date / Time codeine AdvReac Nausea & Verified 06/29/23 12:58 Vomiting tramadol AdvReac Nausea & Verified 06/29/23 12:58 Vomiting Surgical - Exam Vital Signs Pulse Resp BP Pulse Ox 85 16 130/70 96 06/29/23 12:07 06/29/23 12:07 06/29/23 12:07 06/29/23 12:07 - General mild discomfort well developed, well nourished - Eyes normal ocular movement, no icteric - ENT no hearing loss, no congestion - Neck no masses, trachea midline - Respiratory normal respiratory effort, clear to auscultation - Abdomen mild tenderness in the llq Abdomen: soft, no guarding, no rigid, no rebound - Integumentary no rash, no abnormal pigmentation - Neurologic no disoriented, no combative - Psychiatric oriented to time, oriented to person, oriented to place, speech is normal, memory intact Results - Labs 06/29/23 13:20 06/29/23 13:20 Abnormal Lab Results - Last 24 Hours (Table) 06/29/23 06/29/23 06/29/23 Range/Units 13:20 13:20 13:20 WBC 14.6 H (3.8-10.6) k/uL Neutrophils # 10.3 H (1.3-7.7) k/uL Chloride 110 H (98-107) mmol/L Urine Appearance Cloudy H (Clear) Urine Protein Trace H (Negative) Urine Blood Small H (Negative) Ur Leukocyte Esterase Small H (Negative) Urine RBC 33 H (0-5) /hpf Urine WBC 14 H (0-5) /hpf Ur Squamous Epith Cells 10 H (0-4) /hpf Calcium Oxalate Crystal Occasional H (None) /hpf Urine Bacteria Rare H (None) /hpf Urine Mucus Many H (None) /hpf Diabetes panel 06/29/23 Range/Units 13:20 Sodium 142 (137-145) mmol/L Potassium 4.3 (3.5-5.1) mmol/L Chloride 110 H (98-107) mmol/L Carbon Dioxide 23 (22-30) mmol/L BUN 15 (7-17) mg/dL Creatinine 0.68 (0.52-1.04) mg/dL Glucose 88 (74-99) mg/dL Calcium 8.5 (8.4-10.2) mg/dL AST 24 (14-36) U/L ALT 14 (4-34) U/L Alkaline Phosphatase 101 (38-126) U/L Total Protein 6.4 (6.3-8.2) g/dL Albumin 3.5 (3.5-5.0) g/dL Calcium panel 06/29/23 Range/Units 13:20 Calcium 8.5 (8.4-10.2) mg/dL Albumin 3.5 (3.5-5.0) g/dL Pituitary panel 06/29/23 Range/Units 13:20 Sodium 142 (137-145) mmol/L Potassium 4.3 (3.5-5.1) mmol/L Chloride 110 H (98-107) mmol/L Carbon Dioxide 23 (22-30) mmol/L BUN 15 (7-17) mg/dL Creatinine 0.68 (0.52-1.04) mg/dL Glucose 88 (74-99) mg/dL Calcium 8.5 (8.4-10.2) mg/dL Adrenal panel 06/29/23 Range/Units 13:20 Sodium 142 (137-145) mmol/L Potassium 4.3 (3.5-5.1) mmol/L Chloride 110 H (98-107) mmol/L Carbon Dioxide 23 (22-30) mmol/L BUN 15 (7-17) mg/dL Creatinine 0.68 (0.52-1.04) mg/dL Glucose 88 (74-99) mg/dL Calcium 8.5 (8.4-10.2) mg/dL Total Bilirubin 0.5 (0.2-1.3) mg/dL AST 24 (14-36) U/L ALT 14 (4-34) U/L Alkaline Phosphatase 101 (38-126) U/L Total Protein 6.4 (6.3-8.2) g/dL Albumin 3.5 (3.5-5.0) g/dL - Imaging CT scan - abdomen: report reviewed, image reviewed CT scan - pelvis: report reviewed, image reviewed Assessment and Plan Assessment: Impression: left ureteral stone with colic and obstruction. Plan: The patient was admitted ot her primary, Dr Euceda. I reviewed the labs and ct scan from [facility]. I dont think she is septic at present but I think the antibiotics are reasonable. I will place her on flomax. We discussed stone manipulation. I will reassess in the am with the thought of possible stone nakita pulation and or stent placement. Time with Patient: Greater than 30
[2023-06-29] MEDS: TAMSULOSIN 0.4 MG CAP.ER.24H PO SCH ×2 (20:41→20:46)
[2023-06-30] MEDS: SODIUM CHLORIDE 0.9% 1,000 ML IV SCH ×3 (04:30→19:24)
--- NOTE | 2023-06-30 07:39 | P.PN ---
Subjective Progress Note Date: 06/30/23 The patient is in the hospital with a distal left ureteral stone. There is question a urine infection but she shows no signs of sepsis. She wishes to have the stone removed. She is set up for a left ureteroscopy laser lithotripsy later today Objective - Vital Signs Vital signs: Vital Signs Temp 98.2 F 06/30/23 07:00 Pulse 68 06/30/23 07:00 Resp 18 06/30/23 07:00 BP 110/62 06/30/23 07:00 Pulse Ox 93 L 06/30/23 07:00 FiO2 Intake & Output 06/29/23 06/30/23 06/30/23 18:59 06:59 18:59 Weight 83.915 kg Other: Voiding Method Toilet # Voids 2 - Labs CBC & Chem 7: 06/29/23 13:20 06/29/23 13:20 Labs: Abnormal Lab Results - Last 24 Hours (Table) 06/29/23 06/29/23 06/29/23 Range/Units 13:20 13:20 13:20 WBC 14.6 H (3.8-10.6) k/uL Neutrophils # 10.3 H (1.3-7.7) k/uL Chloride 110 H (98-107) mmol/L Urine Appearance Cloudy H (Clear) Urine Protein Trace H (Negative) Urine Blood Small H (Negative) Ur Leukocyte Esterase Small H (Negative) Urine RBC 33 H (0-5) /hpf Urine WBC 14 H (0-5) /hpf Ur Squamous Epith Cells 10 H (0-4) /hpf Calcium Oxalate Crystal Occasional H (None) /hpf Urine Bacteria Rare H (None) /hpf Urine Mucus Many H (None) /hpf Assessment and Plan Assessment: Impression: Distal left ureteral stone Recommendations: Left ureteroscopy laser lithotripsy later today
--- NOTE | 2023-06-30 08:49 | P.HPIM ---
History of Present Illness H&P Date: 06/30/23 Chief Complaint: Nephrolithiasis The patient is a 63-year-old white female who was essentially admitted for nephrolithiasis for ureteral obstruction. There was elevated white count and UTI noted on initial evaluation at [facility]. She was transferred due to possible sepsis with no neurology service at that institution. She is admitted now and will essentially have left ureteral lithotripsy later today. No new complaints. She does not appear septic today. No previous history of stones that I can remember. Review of Systems Constitutional: Denies chills, Denies fever Eyes: denies blurred vision, denies pain Ears, nose, mouth and throat: Denies headache, Denies sore throat Cardiovascular: Denies chest pain, Denies shortness of breath Respiratory: Denies cough Gastrointestinal: Reports as per HPI, Denies abdominal pain, Denies diarrhea, Denies nausea, Denies vomiting Genitourinary: Reports as per HPI, Reports kidney stones Musculoskeletal: Denies myalgias Past Medical History Past Medical History: GERD/Reflux, Osteoarthritis (OA), Pneumonia, Renal Disease Additional Past Medical History / Comment(s): Arthritis R hip and R knee, kidney stones, uti off/on since January 2019. History of Any Multi-Drug Resistant Organisms: None Reported Past Surgical History: Cholecystectomy, Hysterectomy, Tubal Ligation Past Anesthesia/Blood Transfusion Reactions: No Reported Reaction Past Psychological History: No Psychological Hx Reported Additional Psychological History / Comment(s): Pt resides with her adult son. She is independent. Smoking Status: Current every day smoker Past Alcohol Use History: None Reported Additional Past Alcohol Use History / Comment(s): Pt started smoking in 1982 and is a half a ppd smoker. Past Drug Use History: None Reported - Past Family History Mother Family Medical History: No Reported History, Dementia, Hyperlipidemia Additional Family Medical History / Comment(s): Mother of dementia at the age of 97yrs. Father Family Medical History: Coronary Artery Disease (CAD), Eye Disorder Additional Family Medical History / Comment(s): Father had glaucoma. He lived to be 97yrs old. Medications and Allergies Home Medications Medication Instructions Recorded Confirmed Type No Known Home Medications 06/29/23 06/29/23 History Allergies Allergy/AdvReac Type Severity Reaction Status Date / Time codeine AdvReac Nausea & Verified 06/29/23 12:58 Vomiting tramadol AdvReac Nausea & Verified 06/29/23 12:58 Vomiting Physical Exam Vitals: Vital Signs Temp Pulse Pulse Resp BP BP Pulse Ox 06/30/23 07:00 98.2 F 68 18 110/62 93 L 06/30/23 02:00 97.9 F 77 16 114/71 92 L 06/29/23 20:44 98.4 F 64 16 147/90 96 06/29/23 15:49 98.1 F 69 18 121/81 94 L 06/29/23 12:07 85 16 130/70 96 Intake and Output 06/29/23 06/30/23 06/30/23 22:59 06:59 14:59 Other: Voiding Method Toilet Toilet # Voids 1 2 Weight 83.915 kg - Constitutional General appearance: no acute distress - EENT Eyes: EOMI - Neck Neck: no lymphadenopathy - Respiratory Respiratory: bilateral: CTA - Cardiovascular Rhythm: regular Heart sounds: normal: S1, S2 Abnormal Heart Sounds: no S3 Gallop - Gastrointestinal General gastrointestinal: soft, no tenderness Results CBC & Chem 7: 06/29/23 13:20 06/29/23 13:20 Labs: Abnormal Lab Results - Last 24 Hours (Table) 06/29/23 06/29/23 06/29/23 Range/Units 13:20 13:20 13:20 WBC 14.6 H (3.8-10.6) k/uL Neutrophils # 10.3 H (1.3-7.7) k/uL Chloride 110 H (98-107) mmol/L Urine Appearance Cloudy H (Clear) Urine Protein Trace H (Negative) Urine Blood Small H (Negative) Ur Leukocyte Esterase Small H (Negative) Urine RBC 33 H (0-5) /hpf Urine WBC 14 H (0-5) /hpf Ur Squamous Epith Cells 10 H (0-4) /hpf Calcium Oxalate Crystal Occasional H (None) /hpf Urine Bacteria Rare H (None) /hpf Urine Mucus Many H (None) /hpf Assessment and Plan (1) Calculus of kidney Current Visit: Yes Status: Acute Code(s): N20.0 - CALCULUS OF KIDNEY SNOMED Code(s): 03206924 (2) UTI (urinary tract infection) Current Visit: Yes Status: Acute Code(s): N39.0 - URINARY TRACT INFECTION, SITE NOT SPECIFIED SNOMED Code(s): 69507318 Plan: Appreciate urology input. Lithotripsy to be done today. Continue IV fluid hydration. Anticipate discharge once cleared by urology
[2023-06-30] MEDS ORDERED: IV FLUID CONTINUATION 1,000 ML IV ONE (12:04)
[2023-06-30] MEDS ORDERED: DEXAMETHASONE SOD PHOSPHATE 4 MG/ML 1 ML VIAL IVP ONE (12:11)
[2023-06-30] MEDS ORDERED: ONDANSETRON 4 MG/2 ML VIAL IVP ONE (12:11)
[2023-06-30] MEDS ORDERED: FAMOTIDINE 20 MG/2 ML VIAL IVP ONE (12:17)
[2023-06-30] MEDS ORDERED: GLYCOPYRROLATE 0.2 MG/ML 2 ML VIAL ONE (12:32)
[2023-06-30] MEDS ORDERED: KETOROLAC 15 MG/ML 1 ML VIAL ONE (12:32)
[2023-06-30] MEDS ORDERED: PROPOFOL 10 MG/ML 20 ML VIAL IV ONE (12:32)
[2023-06-30] MEDS ORDERED: SUCCINYLCHOLINE CHLORIDE 200 MG/10 ML VIAL IV ONE (12:32)
[2023-06-30] MEDS ORDERED: MIDAZOLAM 2 MG/2 ML VIAL ONE (12:32)
[2023-06-30] MEDS ORDERED: fentaNYL (PF) 50 MCG/ML 2 ML AMP ONE (12:32)
[2023-06-30] MEDS ORDERED: LIDOCAINE 1% INJ 10MG/ML (20 ML MDV) ONE (12:32)
[2023-06-30] MEDS ORDERED: IOPAMIDOL-370 100ML BTL MISCELLANE ONE (13:20)
--- NOTE | 2023-06-30 13:28 | P.OP ---
Date of Procedure: 06/30/23 Preoperative Diagnosis: Right ureteral calculus, Postoperative Diagnosis: Same, cystocele, grade 4 Procedure(s) Performed: Cystoscopy, right ureteroscopy, laser lithotripsy to ureteral stone Anesthesia: CAIO Surgeon: Jim Suarez Estimated Blood Loss (ml): 0 Pathology: other Condition: stable (Stone) Disposition: PACU Indications for Procedure: Patient is 63. She is transferred from [facility] with a large distal ureteral stone on the left and possible urinary infection. She did not show any signs of sepsis. She comes for stone removal Description of Procedure: Patient brought to the operating suite. Given a general anesthetic. Placed lithotomy position with a sterile prep and drape. There is a large vaginal prolapse consistent with a large cystocele. I reduced the cystocele with Ray- Cara sponges. I passed the cystoscope and the bladder. The right ureteral orifice is normal left is very edematous. The bladder wall shows trabeculation. There is no evidence of infection in the bladder. I then pass ureteroscope into the left distal ureter and dislodged the stone which falls into the bladder. The stone is too big to be pulled out. With the 350 laser probe the stone was broken into tiny pieces and flushed out of the bladder. I then tried to do ureteroscopy to make sure there is no remaining stone. I can pass into the distal ureter but due to the J hooking from the large vaginal prolapse I'm unable to pass this scope further. I then do a retrograde pyelogram through the scope and see no remaining stone. At the end of the procedure the bladder strain the patient awake and returned recovery room good condition Impression successful removal distal left ureteral stone. The patient will be followed in the office postoperatively.
--- NOTE | 2023-06-30 14:07 | FL ---
EXAMINATION TYPE: FL urography retrograde Intraoperative/procedural fluoroscopic services were provid ed. Total fluoroscopy time is 41.1 seconds with a total of 4 submitted images to PACS. Please see the operative/procedural note for further details. DAP: 8.4906 Gycm2
[2023-06-30 15:11] VITALS: RESP 16
[2023-06-30] MEDS: TAMSULOSIN 0.4 MG CAP.ER.24H PO SCH (18:23)
[2023-06-30] MEDS ORDERED: ZOLPIDEM 5 MG TAB PO PRN (23:22)
[2023-07-01] MEDS: SODIUM CHLORIDE 0.9% 1,000 ML IV SCH ×2 (03:01→10:59)
[2023-07-01 04:17] VITALS: TEMP 97.7
[2023-07-01 08:51] VITALS: BP 126/78; PULSE 54
--- NOTE | 2023-07-01 09:32 | P.PN ---
Subjective Progress Note Date: 07/01/23 The patient is in the hospital the left ureteral stone and possible urinary infection Yesterday she underwent stone removal. Her bladder was not infected. The urine is probably just vaginal contamination due to her significant vaginal prolapse. SHe feels much better after the stone is been removed. Objective - Vital Signs Vital signs: Vital Signs Temp 97.7 F 07/01/23 07:30 Pulse 54 L 07/01/23 07:30 Resp 16 07/01/23 07:30 BP 126/78 07/01/23 07:30 Pulse Ox 94 L 07/01/23 07:30 FiO2 Intake & Output 06/30/23 07/01/23 07/01/23 18:59 06:59 18:59 Intake Total 500 Output Total 5 Balance 495 Intake: IV 500 Output: Estimated Blood Loss 5 Other: Voiding Method Toilet Toilet # Voids 1 1 - Labs CBC & Chem 7: 06/29/23 13:20 06/29/23 13:20 Labs: Microbiology - Last 24 Hours (Table) 06/29/23 13:20 Urine Culture - Final Urine,Voided 06/29/23 13:20 Blood Culture - Preliminary Blood 06/29/23 13:00 Blood Culture - Preliminary Blood Assessment and Plan Assessment: Impression: Status post left ureteroscopy and laser lithotripsy to stone. Recommendation: From a urologic standpoint the patient can be discharged home following with me in 7-10 days
[2023-07-01 12:01] LABS: Basophils % (A) 0 %; Eosinophils # (A) 0.1 k/uL (0-0.7); Eosinophils % (A) 1 %; HCT 39.5 % (34.0-46.0); HGB 12.6 gm/dL (11.4-16.0); Hypochromasia Slight; Lymphocytes # (A) 2.3 k/uL (1.0-4.8); Lymphocytes % (A) 23 %; MCH 29.4 pg (25.0-35.0); MCHC 31.9 g/dL (31.0-37.0); MCV 92.4 fL (80.0-100.0); Mean Platelet Volume 8.2; Monocytes # (A) 0.7 k/uL (0-1.0); Monocytes % (A) 7 %; Neutrophils # (A) 6.7 k/uL (1.3-7.7); Neutrophils % (A) 68 %; Platelet Count 251 k/uL (150-450); RBC 4.28 m/uL (3.80-5.40); RDW 14.2 % (11.5-15.5); WBC 9.9 k/uL (3.8-10.6)
[2023-07-01 12:17] LABS: ALT 16 U/L (4-34); AST 24 U/L (14-36); African American GFR (CKD) >90 (>60 ml/min/1.73 sqM); Albumin 3.6 g/dL (3.5-5.0); Albumin/Globulin Ratio 1.3; Alkaline Phosphatase 94 U/L (38-126); Anion Gap 8 mmol/L; Blood Urea Nitrogen 20 mg/dL (7-17); Calcium 9.2 mg/dL (8.4-10.2); Carbon Dioxide 25 mmol/L (22-30); Chloride 109 mmol/L (98-107); Globulin 2.8 g/dL; Glucose 87 mg/dL (74-99); Non-African American GFR(CKD) >90 (>60 ml/min/1.73 sqM); Potassium 4.9 mmol/L (3.5-5.1); Sodium 142 mmol/L (137-145); Total Bilirubin 0.4 mg/dL (0.2-1.3); Total Protein 6.4 g/dL (6.3-8.2)
--- NOTE | 2023-07-01 13:21 | P.DS ---
Providers Date of admission: 06/29/23 12:55 Expected date of discharge: 07/01/23 Attending physician: Edwin Euceda Consults: 06/29/23 12:37 Consult Physician Routine Consulting Provider: Jim Suarez Consult Reason/Comments: Renal stone, UTI Do you want consulting provider notified?: Already Contacted Primary care physician: Edwin Euceda Hospital Course: Discharge diagnoses; Left ureteral stone Sepsis UTI Hospital course; The patient is a 63-year-old white female who was essentially admitted for nephrolithiasis for ureteral obstruction. There was elevated white count and UTI noted on initial evaluation at [facility]. She was transferred due to possible sepsis with no urology service at that institution. She is admitted now and will essentially have left ureteral lithotripsy later today. No new complaints. She does not appear septic today. No previous history of stones that I can remember. 07/01. Patient seen and examined. urology cleared the patient for discharge. Patient underwent Cystoscopy,ureteroscopy, laser lithotripsy to ureteral stone. He is discharged on oral Ceftin for one week PHYSICAL EXAMINATION: GENERAL: The patient is alert and oriented x3, not in any acute distress. Well developed, well nourished. HEENT: Pupils are round and equally reacting to light. EOMI. No scleral icterus. No conjunctival pallor. Normocephalic, atraumatic. No pharyngeal erythema. No thyromegaly. CARDIOVASCULAR: S1 and S2 present. No murmurs, rubs, or gallops. PULMONARY: Chest is clear to auscultation, no wheezing or crackles. ABDOMEN: Soft, nontender, nondistended, normoactive bowel sounds. No palpable organomegaly. MUSCULOSKELETAL: No joint swelling or deformity. EXTREMITIES: No cyanosis, clubbing, or pedal edema. NEUROLOGICAL: Gross neurological examination did not reveal any focal deficits. SKIN: No rashes. Dictation was produced using [employer] dictation software. please excuse any grammatical, word or spelling errors. Patient Condition at Discharge: Stable Plan - Discharge Summary New Discharge Prescriptions: New cefUROXime axetiL [Cefuroxime] 500 mg PO BID 7 Days #14 tab Tamsulosin [Flomax] 0.4 mg PO PC-SUPPER 15 Days #15 cap Discharge Medication List Tamsulosin [Flomax] 0.4 mg PO PC-SUPPER 15 Days #15 cap 07/01/23 [Rx] cefUROXime axetiL [Cefuroxime] 500 mg PO BID 7 Days #14 tab 07/01/23 [Rx] Follow up Appointment(s)/Referral(s): Edwin Euceda MD [Primary Care Provider] - 1-2 days Jim Suarez MD [STAFF PHYSICIAN] - 10 Days Discharge Disposition: HOME SELF-CARE
== END 2023-07-01 14:03 | disposition home or self-care (01) ==
LOC: EC 11:59 → 5NMEDONC 12:55 → 6NMEDSUR 14:09
PROVIDERS: ADMIT Family Medicine; ATTEND Family Medicine
DX: N20.1 Calculus of ureter (principal); A41.9 Sepsis, unspecified organism; N39.0 Urinary tract infection, site not specified; N99.3 Prolapse of vaginal vault after hysterectomy; K21.9 Gastro-esophageal reflux disease without esophagitis; M19.90 Unspecified osteoarthritis, unspecified site; M16.11 Unilateral primary osteoarthritis, right hip; M17.11 Unilateral primary osteoarthritis, right knee; F17.210 Nicotine dependence, cigarettes, uncomplicated; Z79.899 Other long term (current) drug therapy; Z88.5 Allergy status to narcotic agent; Z87.01 Personal history of pneumonia (recurrent); Z87.440 Personal history of urinary (tract) infections; Z87.442 Personal history of urinary calculi; Z90.49 Acquired absence of other specified parts of digestive tract; Z90.710 Acquired absence of both cervix and uterus; Z98.51 Tubal ligation status; Z98.890 Other specified postprocedural states; Z82.49 Family history of ischemic heart disease and other diseases of the circulatory system; Z83.511 Family history of glaucoma; Z83.49 Family history of other endocrine, nutritional and metabolic diseases; Z82.0 Family history of epilepsy and other diseases of the nervous system
CPT/HCPCS: 99285; 36415; 80053 ×2; 83605; 85025 ×2; 81001; 87040; 82365; 87086; 74420; 52353; G0378 ×4; J2250; J0330; J1100; J2405; J0696 ×2; J2001; J3010; J3490; J1885; J2704; Q9967